=== PATIENT | male | born 1990 | race Caucasian/White ===

== ENCOUNTER 2024-09-04 15:01 | Emergency (ER) | payer OTHER ==
[~2024-09-04] VITALS: Ht 177.8 cm; Wt 67.6 kg
[2024-09-04] MEDS: LORazepam 1 MG TABLET PO ONE (17:59)
[2024-09-04 18:23] VITALS: TEMP 97.6
[2024-09-04 18:38] VITALS: BP 136/74; PULSE 85; RESP 18; O2SAT 100
== END 2024-09-04 19:15 | disposition home or self-care (01) ==
LOC: EMS 15:01
DX: F41.9 Anxiety disorder, unspecified (principal); F16.10 Hallucinogen abuse, uncomplicated; F32.A Depression, unspecified
CPT/HCPCS: 99283

== ENCOUNTER 2025-03-09 20:30 | Emergency (ER) | payer OTHER ==
[~2025-03-09] VITALS: Ht 177.8 cm; Wt 68.2 kg
[~2025-03-09 20:30] MED LIST: BUPR-344 PO; CLON0.1T2 PO; FLUO-418 PO; GABA-1216 PO; TRAZ150T80 PO
[2025-03-09 20:32] VITALS: BP 156/90; PULSE 105; RESP 18; TEMP 97.9; O2SAT 96
== END 2025-03-10 01:05 | disposition left against medical advice (07) ==
LOC: EMS 20:30
DX: F41.9 Anxiety disorder, unspecified (principal); Z53.21 Procedure and treatment not carried out due to patient leaving prior to being seen by health care provider